=== PATIENT | female | born 1975 | race Caucasian/White ===

== ENCOUNTER 2021-06-06 17:16 | Emergency (ER) | payer BC ==
[2021-06-06 17:27] VITALS: BP 120/69; PULSE 75; TEMP 98.7; BMI 32.0
[2021-06-06] MEDS ORDERED: LIDOCAINE 5% TOPICAL PATCH TP ONE (17:56)
[2021-06-06] MEDS ORDERED: LIDOCAINE 5% TOPICAL PATCH ONE (18:41)
[2021-06-06] MEDS ORDERED: LIDOCAINE PATCH REMOVAL MC SCH (22:00)
== END 2021-06-06 18:54 | disposition home or self-care (01) ==
LOC: FER 17:16
DX: S29.9XXA Unspecified injury of thorax, initial encounter (principal); W22.8XXA Striking against or struck by other objects, initial encounter
CPT/HCPCS: 71101-TC-LT-FY; 99283-25